=== PATIENT | female | born 1950 | race Caucasian/White ===

== ENCOUNTER 2019-07-08 11:19 | Outpatient (CLI) | payer OTHER, SELFPAY ==
--- NOTE | ~2019-07-08 | XR_ITS ---
XR hip RT min 2V DATE: 07/08/2019 11:57 INDICATION: Right hip pain. No injury. TECHNIQUE: AP, lateral, crosstable lateral views of right hip COMPARISON: None FINDINGS: No fracture or dislocation, avascular necrosis or bone destruction of the right hip. Right hip joint space is well preserved. The sacroiliac joints and pubic symphysis appear normal. Surgical clip overlying right mid abdomen and another the left pelvis. IMPRESSION: Negative right hip Reviewed, dictated and finalized at location A. IMPRESSION: Negative right hip
== END 2019-07-08 11:20 | disposition home or self-care (01) ==
PROVIDERS: PCP Family Medicine Geriatric Medicine; Visit Provider Family Medicine Geriatric Medicine
DX: M25.551 Pain in right hip (principal)
CPT/HCPCS: 73502